=== PATIENT | male | born 1995 | race Caucasian/White ===

== ENCOUNTER 2018-12-11 09:56 | Emergency (ER) | payer BC, OTHER ==
[2018-12-11] MEDS: SOD CHLORIDE 0.9% 1,000 ML IV (10:31)
[2018-12-11] MEDS: ONDANSETRON 4 MG INJ IV (10:31)
[2018-12-11] MEDS: KETOROLAC 30 MG INJ IV (10:32)
[2018-12-11 10:49] LABS: ADD UMIC YES; UR ASCORBIC ACID NEGATIVE (NEGATIVE); UR BILIRUBIN (Dip) NEGATIVE (NEGATIVE); UR BLOOD (Dip) 1+ mg/dL (NEGATIVE); UR CLARITY CLEAR (CLEAR); UR COLOR YELLOW (YELLOW); UR GLUCOSE (Dip) NEGATIVE (NEGATIVE); UR KETONES (Dip) NEGATIVE (NEGATIVE); UR LEUKOCYTE ESTERASE (Dip) NEGATIVE Leu/ul (NEGATIVE); UR NITRITE (Dip) NEGATIVE (NEGATIVE); UR RBC 0 /HPF (0-5); UR SPECIFIC GRAVITY (Dip) 1.018 (1.003-1.030); UR TOTAL PROTEIN (Dip) NEGATIVE (NEGATIVE); UR UROBILINOGEN (Dip) NEGATIVE (NEGATIVE); UR WBC 1 /HPF (0-5)
== END 2018-12-11 11:32 | disposition home or self-care (01) ==
LOC: FTE 09:56
DX: B34.9 Viral infection, unspecified (principal)
CPT/HCPCS: 81001; 96361; 96374; 96375; 99284-25